=== PATIENT | female | born 1990 | race Caucasian/White ===

== ENCOUNTER → 2016-09-03 | Outpatient (CLI) | payer BC ==
[~2016-09-03] MED LIST: BCPILLS PO
== END | disposition home or self-care (01) ==
LOC: C.PAPS 09:26
PROVIDERS: ATTEND Obstetrics & Gynecology
DX: Z01.419 Encounter for gynecological examination (general) (routine) without abnormal findings (principal)

== ENCOUNTER → 2016-09-03 | Outpatient (CLI) | payer BC ==
[2016-09-08 09:57] LABS: CHLAMYDIA TRACH RNA*** NOT DETECTED (NOT DETECTED); GC (NEIS GONORRHOEAE)RNA** NOT DETECTED (NOT DETECTED)
== END | disposition home or self-care (01) ==
LOC: C.LABSPEC 15:15
PROVIDERS: ATTEND Obstetrics & Gynecology
DX: Z01.419 Encounter for gynecological examination (general) (routine) without abnormal findings (principal)

== ENCOUNTER 2018-07-27 19:24 | Inpatient (IN) ==
[2018-07-27] MEDS ORDERED: OXYTOCIN 30 UNITS/500 ML BAG IV PRN (19:37)
[2018-07-27] MEDS ORDERED: LACTATED RINGER'S 1,000 ML IV PRN (19:37)
--- NOTE | 2018-07-27 19:43 | History & Physical Report ---
Date of Service July 27, 2018 38+5 GA G1 presents for assessment of blood pressure that was initially checked in the office by my partner. On checking blood pressure today the blood pressure is over the limits for gestational hypertension as a result that makes 2 readings in the last 4 hours that she meets the diagnosis for gestational hypertension. Cervix is apparently unfavorable I recommended cervical Franklin patient seems to understand this and the need for induction. The patient is currently not symptomatic she has no headache no right upper quadrant pain no visual problems she does have some increased swelling she is group B strep positive. has been otherwise uncomplicated and this is her first baby Assessment & Plan (1) Gestational hypertension: Recommend induction. We will begin by cervical ripening with cervical Franklin patient will also need penicillin prophylaxis for GBS this will be started when more active labor is in effect History of Present Illness Primary Care Provider: Steve Fatima MD Allergies Allergy/AdvReac Type Severity Reaction Status Date / Time SEASONAL Allergy Unknown ITCHY/WATERY Uncoded 06/27/15 09:05 EYES Home Medications Home Medications Medication Instructions Recorded Confirmed Type Control Pills 1 tab PO DAILY #0 tab 01/03/16 History Physical Exam Vital Signs (Past 24 Hours): Last Vital Signs Pulse 121 H 07/27/18 19:34 BP 167/91 H 07/27/18 19:34 Constitutional: WD/WN, vitals as above Respiratory: normal respiratory effort, lungs clear to auscultation Cardiovascular: RRR, no murmur, no edema
[2018-07-27 20:12] LABS: Hemoglobin 9.4 g/dL (12.0-16.0); Mean Corpuscular Volume 73.5 fL (80-100); Mean Platelet Volume 10.5 fL (7.4-10.4); Platelet Count 178 K/uL (130-400); RDW Standard Deviation 43.3 fL (36.4-46.3); Red Blood Count 4.08 M/uL (4.2-5.4); White Blood Count 14.79 K/uL (4.8-10.8)
--- NOTE | 2018-07-27 20:43 | Obstetrical Progress Note ---
Date of Service Reviewed -induced hypertension labs drawn earlier these were normal cervix is examined is 50% and closed cervical Franklin placed under sterile conditions balloon inflated to 30cc July 27, 2018 Physical Exam Vital Signs (Past 24 Hours): Last Vital Signs Temp 36.8 C 07/27/18 19:34 Pulse 113 H 07/27/18 20:12 Resp 20 07/27/18 20:12 BP 149/80 H 07/27/18 20:12
[2018-07-27 20:54] LABS: Mean Corpuscular Hgb Conc 31.3 g/dL (32-36)
[2018-07-27] MEDS ORDERED: DiphenhydrAMINE HCL 50 MG/ML VIAL IV STA (22:12)
[2018-07-27] MEDS ORDERED: DiphenhydrAMINE HCL 50 MG/ML VIAL ONE (22:13)
[2018-07-27] MEDS ORDERED: PENICILLIN G POTASSIUM 6 MU in DEXTROSE 5% 250 ML IV STA (22:18)
[2018-07-28] MEDS ORDERED: LACTATED RINGER'S 1,000 ML IV PRN ×2 (00:18→17:33)
[2018-07-28] MEDS: OXYTOCIN 30 UNITS/500 ML BAG IV PRN (04:53)
--- NOTE | 2018-07-28 06:31 | Obstetrical Progress Note ---
Date of Service July 28, 2018 Subjective Patient on Pitocin cervical Franklin has fallen out she is now 3-4 cm 50% -3 position has been confirmed is vertex on ultrasound. Penicillin is running heart rate category 1 Physical Exam Vital Signs (Past 24 Hours): Last Vital Signs Temp 36.4 C L 07/28/18 04:23 Pulse 107 H 07/28/18 06:29 Resp 20 07/27/18 20:12 BP 148/102 H 07/28/18 06:29 Pulse Ox 98 07/27/18 22:43
--- NOTE | 2018-07-28 07:37 | Obstetrical Progress Note ---
Date of Service July 28, 2018 Assessment & Plan (1) Gestational hypertension: bps ok, no complaints. c/w pit pt aware i am taking over care. (2) 38 weeks gestation of : (3) Group beta Strep positive: on pcn Subjective comfortable, no pain with ctx. Physical Exam Vital Signs (Past 24 Hours): Last Vital Signs Temp 98.2 F 07/28/18 07:15 Pulse 97 H 07/28/18 07:15 Resp 22 07/28/18 07:15 BP 149/90 H 07/28/18 07:15 Pulse Ox 98 07/27/18 22:43 Constitutional: WD/WN, vitals as above Genitourinary: OB Exam Monitor Tracing: + external FHT monitor used (130 mod variability, reactive), + external uterine monitor used (q2-3), + category I and + normal FHT variability
[2018-07-28] MEDS: PENICILLIN G POTASSIUM 3 MU in DEXTROSE 5% 100 ML IV PRN ×4 (08:52→21:44)
[2018-07-28] MEDS ORDERED: COUGH DROP (SUGAR FREE) LOZ 24 LOZ/1 BOX BUCCAL ONE (10:40)
[2018-07-28] MEDS: LACTATED RINGER'S 1,000 ML IV SCH ×3 (11:18→23:19)
--- NOTE | 2018-07-28 12:50 | Obstetrical Progress Note ---
Date of Service July 28, 2018 Assessment & Plan (1) 38 weeks gestation of : (2) Gestational hypertension: bps ok. c/w pit. will see how arom augments pattern. will need to have exam before getting up to BR. (3) Group beta Strep positive: on pcn Subjective feeling some ctx but not severe. Physical Exam Vital Signs (Past 24 Hours): Last Vital Signs Temp 98.1 F 07/28/18 12:02 Pulse 88 07/28/18 12:02 Resp 18 07/28/18 12:02 BP 130/80 07/28/18 12:02 Pulse Ox 98 07/27/18 22:43 Constitutional: WD/WN, vitals as above Genitourinary: Manual OB Exam: + cervical dilation 3 cm, + cervical effacement 80%, + station -2 and + amniotic fluid (arom, needle, with fundal pressure, large amount of fluid) clear OB Exam Monitor Tracing: + external FHT monitor used (140 mod variability), + external uterine monitor used (q2. pit at 15), + category I and + normal FHT variability
[2018-07-28] MEDS ORDERED: CHLORASEPTIC 1.4% SOLN 180 ML BTL MT PRN (15:13)
--- NOTE | 2018-07-28 15:16 | Obstetrical Progress Note ---
Date of Service July 28, 2018 Assessment & Plan (1) 38 weeks gestation of : (2) Group beta Strep positive: pcn (3) Gestational hypertension: c/w pit, increase to keep ctx strong and regular. reeval cx in 2hr Subjective feeling pain with ctx but not terrible Physical Exam Vital Signs (Past 24 Hours): Last Vital Signs Temp 98.1 F 07/28/18 14:30 Pulse 94 H 07/28/18 14:49 Resp 20 07/28/18 14:30 BP 132/81 07/28/18 14:49 Pulse Ox 98 07/27/18 22:43 Constitutional: WD/WN, vitals as above Genitourinary: Manual OB Exam: + cervical dilation 4 cm, + cervical effacement 90% and + station -2 OB Exam Monitor Tracing: + external FHT monitor used (135 mod variability reactive), + external uterine monitor used (q3), + category I and + normal FHT variability pit at 21
[2018-07-28] MEDS ORDERED: CETIRIZINE HCL 10 MG TABLET PO STA (15:40)
[2018-07-28] MEDS ORDERED: ePHEDrine sulfate 50 MG/ML AMP ONE (17:05)
[2018-07-28] MEDS ORDERED: fentaNYL citrate 100 MCG/2 ML VIAL ONE (17:05)
[2018-07-28] MEDS ORDERED: BUPIVACAINE 0.25% 30 ML VIAL ONE (17:05)
[2018-07-28] MEDS ORDERED: fentaNYL 2MCG/ML ROPIV 1.25MG/ML 100 ML BAG EPI ONE (17:06)
--- NOTE | 2018-07-28 17:14 | Anesthesiology Consultation ---
Date of Service July 28, 2018 Assessment & Plan (1) Encounter for pre-operative examination: Chart Review Chart Review: Acceptable Risk for Labor Epidural Consults Requested none ASA ASA2 Proposed Anesthesia Anesthesia Type: Labor Epidural Risk / Benefits Reviewed With: PT / POA / Parent / Guardian, Accepts Plan and Informed Consent Obtained History Height/Weight Height: 5 ft 3 in Weight: 95.254 kg Allergies Allergy/AdvReac Type Severity Reaction Status Date / Time milk Allergy Anaphylaxis Verified 07/27/18 20:46 SEASONAL Allergy Unknown ITCHY/WATERY Uncoded 06/27/15 09:05 EYES Medications Home Medications Medication Instructions Recorded Confirmed Last Taken Iron (ferrous sulfate) 1 tabs PO DAILY 07/27/18 07/27/18 07/27/18 Vitamin 1 tab PO DAILY 07/27/18 07/27/18 07/27/18 albuterol sulfate [ProAir HFA] 2 inhaler INHALATION Q4 PRN 07/27/18 07/27/18 2 Months Ago ~05/29/18 cetirizine [Zyrtec] 1 tab PO DAILY PRN 07/27/18 07/27/18 2 Weeks Ago ~07/13/18 Active Medications Generic Name Dose Route Start Last Admin Trade Name Freq PRN Reason Stop Dose Admin Lactated Ringer's 1,000 mls @ 125 mls/hr 07/27/18 19:45 07/28/18 17:01 Lr IV 07/29/18 19:44 999 mls/hr .Q8H SUSANA Infusion Penicillin G Potassium 3 mu/ 106 mls @ 100 mls/hr 07/27/18 22:18 07/28/18 14:37 Dextrose IV 08/06/18 22:17 Infused Q4H PRN Infusion Give until delivery Oxytocin 30 units in 500 mls @ 23 mls/hr 07/28/18 04:18 07/28/18 15:15 Pitocin IV 08/27/18 04:17 1.38 units/hr .[id number] PRN 23 mls/hr Labor Induction/Augmentation Titration Protocol 1.38 UNITS/HR Lactated Ringer's 1,000 mls @ 999 mls/hr 07/28/18 00:18 07/28/18 11:18 Lr IV 07/30/18 00:17 Infused .Q1H1M PRN Infusion Tachysystole Phenol 2 sprays 07/28/18 15:13 07/28/18 16:27 Chloraseptic 1.4% [place] 08/27/18 15:12 2 sprays Q4 PRN Administration Allergic Symptoms Past Surgical History Surgical History S/P wisdom tooth extraction Past Anesthesia History No Hx of Anesthesia Complications and No Family Hx of Anesthesia Complications History of PONV No Motion Sickness Screening History of Motion Sickness: No Social History Smoking Status: Never smoker Do You Dip or Chew Tobacco: No Hx Alcohol Use: No Hx Substance Use: No substance use type: does not use Exercise / Class Metabolic Activity II 4-5 Yardwork/Stairs/Walk up hill Physical Exam Vital Signs Last Vital Signs Temp 98.1 F 07/28/18 16:56 Pulse 94 H 07/28/18 14:49 Resp 20 07/28/18 16:56 BP 132/81 07/28/18 14:49 Pulse Ox 98 07/27/18 22:43 ENMT Mouth: no dentition abnormality Thyromental Distance: > or= 3.5 Finger Breadths Mallampati Class: II Neck normal visual inspection Respiratory normal respiratory effort Auscultation: lungs clear to auscultation bilaterally Cardiovascular Rate/Rhythm: regular rate and regular rhythm Testing Laboratory Results 07/27/18 19:52
[2018-07-28] MEDS ORDERED: NALOXONE HCL 0.4 MG/1 ML VIAL/CARP IV PRN (17:33)
[2018-07-28] MEDS ORDERED: NALOXONE HCL 1 MG in SODIUM CHLORIDE 0.9% 1000ML 1,000 ML IV PRN (17:33)
[2018-07-28] MEDS ORDERED: ePHEDrine sulfate 50 MG/ML AMP IV PRN (17:33)
[2018-07-28] MEDS ORDERED: fentaNYL 2MCG/ML ROPIV 1.25MG/ML 100 ML BAG EPI PRN (17:33)
[2018-07-28] MEDS ORDERED: ONDANSETRON INJ 2 MG/ML 2 ML VIAL IV PRN (17:33)
[2018-07-28] MEDS ORDERED: DiphenhydrAMINE HCL 50 MG/ML VIAL IV PRN (17:33)
[2018-07-28] MEDS ORDERED: NALBUPHINE HCL INJ 10 MG/ML AMP IV PRN (17:33)
--- NOTE | 2018-07-28 17:54 | Obstetrical Progress Note ---
Date of Service July 28, 2018 Assessment & Plan (1) 38 weeks gestation of : (2) Group beta Strep positive: on pcn (3) Gestational hypertension: c/w pit. fhts categ 1. slow but steady cx change. rec resting, less visitors Subjective now comfortable with epidural, says she is tired. Physical Exam Vital Signs (Past 24 Hours): Last Vital Signs Temp 98.1 F 07/28/18 16:56 Pulse 105 H 07/28/18 17:48 Resp 20 07/28/18 16:56 BP 121/73 07/28/18 17:47 Pulse Ox 100 07/28/18 17:48 Constitutional: WD/WN, vitals as above Genitourinary: Manual OB Exam: + cervical dilation 5 cm, + cervical effacement 90% and + station -2 OB Exam Monitor Tracing: + external FHT monitor used (140 mod variability reactive), + external uterine monitor used (q2), + category I and + normal FHT variability pit @ 23
--- NOTE | 2018-07-28 20:35 | Obstetrical Progress Note ---
Date of Service July 28, 2018 Assessment & Plan (1) 38 weeks gestation of : (2) Group beta Strep positive: (3) Gestational hypertension: good cx change. fhts categ 1. c/w pit. Subjective having some pressure with contractions. Physical Exam Vital Signs (Past 24 Hours): Last Vital Signs Temp 98.4 F 07/28/18 18:59 Pulse 109 H 07/28/18 20:28 Resp 16 07/28/18 18:59 BP 141/78 H 07/28/18 20:18 Pulse Ox 100 07/28/18 20:28 Constitutional: WD/WN, vitals as above Genitourinary: Manual OB Exam: + cervical dilation 9 cm, + cervical effacement 100% and + station 0 OB Exam Monitor Tracing: + external FHT monitor used (150 mod variability reactive), + external uterine monitor used (q2), + category I and + normal FHT variability
[2018-07-29] MEDS: PENICILLIN G POTASSIUM 3 MU in DEXTROSE 5% 100 ML IV PRN (01:40)
[2018-07-29] MEDS: OXYTOCIN 30 UNITS/500 ML BAG IV PRN (02:42)
--- NOTE | 2018-07-29 03:26 | Delivery Summary ---
DATE OF OPERATION: 07/29/2018 DELIVERY SUMMARY The patient dilated to complete and pushed to deliver a viable female infant, Apgars 8 and 9 via over intact perineum. Mouth and nose bulb suctioned at the perineum. The shoulders and body delivered with ease. The infant vigorous at . Cord clamped at 30 seconds of life and infant to maternal abdomen where the cord was doubly clamped and then cut. Placenta delivered spontaneously and intact 3-vessel cord. Hemostasis achieved with dilute Pitocin and uterine massage as well as drainage of the bladder under sterile conditions for 150 mL. Cervix intact. Two bilateral hymenal tears extending into the bilateral labia noted. They were injected with 1% lidocaine for anesthesia. They were reapproximated using 3-0 Vicryl. Remainder of the sulci were intact. EBL 300 mL. Mother and baby stable in recovery. I attest to the content of the Intraoperative Record and any orders documented therein. Any exception s are noted below.
--- NOTE | 2018-07-29 03:30 | Anesthesia Procedure Note ---
Date of Service July 29, 2018 Anesthesia Post Epidural Note Vital Signs Vital Signs: Temp Pulse Resp BP Pulse Ox 97.7 F 129 H 20 125/77 98 07/29/18 01:00 07/29/18 03:20 07/29/18 01:45 07/29/18 03:20 07/29/18 02:28 Pain Intensity Bilateral Abdomen: Pain Intensity: 5 Notes Mental Status: alert / awake / arousable and participated in evaluation Nausea / Vomiting: adequately controlled Pain: adequately controlled Airway Patency, RR, SpO2: stable & adequate BP & HR: stable & adequate Hydration State: stable & adequate Neuraxial Anesthesia: was administered and sensory block is resolving Anesthetic Complications: no major complications apparent and Pt Satisfied with anesthetic care Epidural: Removed without complications and With tip intact
[2018-07-29] MEDS ORDERED: ACETAMINOPHEN 325 MG TAB PO PRN (04:08)
[2018-07-29] MEDS ORDERED: SUPERCREAM 0.870% 15 GM JAR EXT PRN (04:08)
[2018-07-29] MEDS ORDERED: HYDROCORTISONE ACETATE 25 MG SUPP PR PRN (04:08)
[2018-07-29] MEDS ORDERED: IBUPROFEN 600 MG TAB PO PRN (04:08)
[2018-07-29] MEDS ORDERED: OXYTOCIN 20 UNITS in LACTATED RINGER'S 1,000 ML IV SCH (04:08)
[2018-07-29] MEDS ORDERED: OXYTOCIN 30 UNITS/500 ML BAG IV PRN (04:08)
[2018-07-29] MEDS ORDERED: OXYCODONE/ACETAMINOPHEN 5mg/325mg TAB PO PRN (04:08)
[2018-07-29] MEDS ORDERED: DIPHTHERIA/TETANUS/PERTUSSIS 0.5 ML SYR/VIAL IM ONE (04:08)
[2018-07-29] MEDS ORDERED: BENZOCAINE 20% AER SPR 82.5 GM CAN EXT PRN (04:08)
[2018-07-29] MEDS: DOCUSATE SODIUM 100 MG CAP PO SCH ×2 (08:19→22:02)
[2018-07-29] MEDS ORDERED: CETIRIZINE HCL 10 MG TABLET PO PRN (21:58)
[2018-07-29] MEDS ORDERED: ALBUTEROL HFA 8 GM INHALER INH PRN (21:58)
--- NOTE | 2018-07-30 07:49 | Obstetrical Progress Note ---
Date of Service July 30, 2018 Assessment & Plan (1) state: Routine care, may be interested in discharge. Present on Admission?: No Subjective Ambulation: ambulating normally Voiding: no voiding problems Passing Gas:: Yes Diet Tolerance:: regular diet Lochia:: Small Feeding Type:: breast feeding Physical Exam Vital Signs (Past 24 Hours) Last Vital Signs Temp 36.7 C 07/29/18 23:20 Pulse 103 H 07/29/18 23:20 Resp 20 07/29/18 23:20 BP 146/83 H 07/29/18 23:20 Pulse Ox 98 07/29/18 23:20 Constitutional WD/WN, vitals as above Eyes PERRL, conjunctivae normal, anicteric sclerae Neck normal visual inspection Respiratory normal respiratory effort and able to speak in complete sentences; no respiratory distress and no labored breathing Cardiovascular Rate/Rhythm: regular rate and regular rhythm Extremities: no edema Chest (Breasts) Chest: normal inspection of chest Gastrointestinal (Abdomen) Inspection/Auscultation: abdomen normal to inspection Soft, postgravid Psychiatric A+Ox3, euthymic affect Genitourinary OB Exam Abdomen: + fundal height Fundus: + firm and + relation to umbilicus (fundus just below umbilicus); not tender
[2018-07-30] MEDS: DOCUSATE SODIUM 100 MG CAP PO SCH (08:40)
== END 2018-07-30 19:40 | disposition home or self-care (01) | DRG 807 ==
LOC: OPB 19:24 → 4S1 19:25 → 4S2 07-29 05:15

== ENCOUNTER 2020-05-29 23:20 | Observation (INO) ==
--- NOTE | 2020-05-30 00:30 | History & Physical Report ---
Date of Service May 30, 2020 Assessment & Plan (1) Vaginal bleeding during : Patient with scant old blood in vault, no active bleeding, no cervical dilation and reassuring status. Rh positive. Placenta was not felt to be low-lying any longer as of ultrasound 2 weeks ago. No obvious precipitating event (sex 10 days ago, back sprain 7 days ago, light toddler kick to belly this evening that did not leave visible bruise; none of these seem highly likely to cause a placental disruption). Doubt significant abruption but will observe for 4 hours to ensure no progression of bleeding. Vitals stable. No known coagulopathy. Unless worsening of symptoms or evidence of status change, will allow patient to take PO and will avoid placing IV or drawing bloodwork. History of Present Illness Chief Complaint: 30yo @ 32w1d presents to L&D due to onset of painless brown-pink spotting on pantiliner at home this evening. She reports that there was no obvious precipitating activity. Specifically she had a low-lying placenta found at 20wk scan and was advised to be on pelvic rest until it was rechecked at 32 weeks, however she was found to have it moved out of the low- lying range at a 30 week ultrasound done for GDM. She notes tonight that her most recent episode of intercourse was the weekend prior to last. However her also mentions that they try to have intercourse every weekend since she works days and he works nights so they don't get much opportunity to be together, which makes me question whether they were really observing pelvic rest between 20 and 30 weeks. In any case there does not sound like there was intercourse in the last 24-48 hours. She also notes she fell and hurt her back at work on 05/23 (a week ago) and was seen in the ER for that, and diagnosed with musculoskeletal strain, so she's been mostly resting at home and not doing any strenuous activity specifically for that reason. She denies using any NSAIDS for pain relief of the back injury. She did note that her toddler kicked her in the belly lightly this evening when she was wiggling excitedly at bedtime, but did not think it was enough to cause trauma. She has good FM, no LOF and no painful contractions. The bleeding was enough that she wore a pantiliner at home that she changed once before coming in, though the one she wore to the hospital was clean on arrival so she said she was worried she didn't need to come in or had overrreacted. Primary Care Provider: Steve Fatima MD Allergies Allergy/AdvReac Type Severity Reaction Status Date / Time milk Allergy Anaphylaxis Verified 05/29/20 11:28 SEASONAL Allergy Unknown ITCHY/WATERY Uncoded 05/01/20 10:32 EYES Home Medications Medication Instructions Recorded Confirmed Type cetirizine 10 mg tablet mg PO PRN tab 12/13/19 05/29/20 History prenat.vits,grzegorz,[id number] 1 tab PO DAILY 12/13/19 05/29/20 History albuterol sulfate 90 mcg/actuation 2 puff INHALATION Q4H PRN #18 g 03/29/20 05/29/20 Rx aerosol inhaler acetone (urine) test #50 ea 05/09/20 05/29/20 Rx blood sugar diagnostic #150 ea 05/09/20 05/29/20 Rx blood-glucose meter #1 ea 05/09/20 05/29/20 Rx lancets 33 gauge #150 ea 05/09/20 05/29/20 Rx aspirin PO 05/15/20 05/29/20 History ferrous sulfate PO 05/15/20 05/29/20 History lidocaine 1 patch TOPICAL DAILY PRN #15 ea 05/23/20 05/29/20 Rx Patient History Medical History (Updated 05/30/20 @ 00:26 by Malini Castro MD) Asthma Condyloma acuminatum Family history of malignant neoplasm of breast in first degree relative Gestational hypertension Heart murmur Seasonal allergies Varicella vaccination Surgical History S/P wisdom tooth extraction Family History (Updated 12/13/19 @ 10:20 by Joselin Borjas) Mother Breast cancer Grandfather (Paternal) Lung cancer Grandfather (Maternal) Aortic valve disorder Denies family history of Ovarian cancer Colorectal cancer Social History (Updated 12/13/19 @ 10:06 by Joselin Borjas) Smoking Status: Never smoker Second Hand Exposure: No; Do You Dip or Chew Tobacco: No; Tobacco Cessation Education Requested by Patient: No Hx Alcohol Use: No Hx Substance Use: No Preferred Language: Malagasy Communication Ability: Effective 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 Beliefs That Will Affect Care: None marital status: marital status details: Rahul Reyes (29) [phone] Current Living Situation: Spouse and Family Current Living Situation Comment: lives with spouse, daughter, no pets current occupational status: employed current occupation: general internal medicine doctor Home D Feels Safe at Home: Yes Safety Concerns: Feels Safe At This Time Assistive Devices: None Review of Systems All systems reviewed & are unremarkable except as noted in HPI & below Physical Exam Constitutional: WD/WN, vitals as above Eyes: PERRL, conjunctivae normal, anicteric sclerae ENMT: external ear and nose normal, oropharynx normal Neck: supple Respiratory: normal respiratory effort and able to speak in complete sentences; no respiratory distress Cardiovascular: Rate/Rhythm: regular rate and regular rhythm Gastrointestinal (Abdomen): Gravid / AGA, nontender Musculoskeletal: no cyanosis or clubbing, extremities motor strength 5/5 Skin: no rashes, warm and dry Psychiatric: A+Ox3, euthymic affect Genitourinary: OB Exam Monitor Tracing: + external FHT monitor used, + external uterine monitor used (toco quiet.) and + category I Vaginal exam: external genitalia normal, hemorrhoid present but no bleeding visible. SSE: Dark brown material, small amount, present in posterior fornix of vagina. No active bleeding from cervix which is visually c/t/h. Speculum removed and gentle digital exam confirms c/t/h. Results & Data ([facility]) Vital Signs (Past 12 Hours) Vital Signs Temp Pulse Resp BP 05/29/20 23:49 88 126/78 05/29/20 23:38 98.6 F 88 18 126/78 Code Status & VTE Plan VTE Prophylaxis Plan VTE Prophylaxis will be ordered: Yes Coding Level of Care Code 99751 OBS Care - Level 2 Diagnoses Vaginal bleeding during O46.90
--- NOTE | 2020-05-30 06:03 | Obstetrical Progress Note ---
Date of Service May 30, 2020 Assessment & Plan (1) Vaginal bleeding during : Discussed episode of vaginal bleeding of uncertain etiology, resolved with rest, and without evidence of PTL. Doubt significant trauma and reassuring status shows there is sufficient placental function. Advised strict pelvic rest for the remainder of the , since placenta was previously shown to be low-lying. Noted that having had a bleed puts patient at risk for further bleeds and abruption going forward, and that any additional vaginal bleeding needs to be reported immediately in addition to being alert for onset of painful contractions or decreased FM. Her next office appointment is 06/12/20. Admission and Anticipated Discharge Date Admission Date: May 30, 2020 Subjective Patient continues to have good FM, no Ctx, no LOF, and has had no further VB since admission. Sees a tinge of brownish color on TP when she wipes after voids, none on geovanny-pad or at any other time. Physical Exam Physical Exam: Vaginal exam deferred at this time given cessation of bleeding. FHT Cat 1 [place] remains quiet. Results & Data ([facility]) Vital Signs (Past 12 Hours) Vital Signs Temp Pulse Resp BP 05/29/20 23:49 98.6 F 88 126/78 05/29/20 23:38 98.6 F 88 18 126/78 PG Care Time/CCT Total # of Minutes Spent Total Time Spent with Patient: Total time spent is greater than 50% in coordination of care (as documented) at patient's floor/unit and/or counseling p atient: Coding Level of Care Code 45102 OBS Care - Discharge Diagnoses Vaginal bleeding during O46.90
--- NOTE | 2020-05-30 06:06 | Discharge Summary ---
Date of Service May 30, 2020 Hospital Course (1) Vaginal bleeding during : Discussed episode of vaginal bleeding of uncertain etiology, resolved with rest, and without evidence of PTL. Doubt significant trauma and reassuring status shows there is sufficient placental function. Advised strict pelvic rest for the remainder of the , since placenta was previously shown to be low-lying. Noted that having had a bleed puts patient at risk for further bleeds and abruption going forward, and that any additional vaginal bleeding needs to be reported immediately in addition to being alert for onset of painful contractions or decreased FM. Her next office appointment is 06/12/20. Coding Level of Care Code None Diagnoses Vaginal bleeding during O46.90
== END 2020-05-30 05:50 | disposition home or self-care (01) ==
LOC: OPB 23:20 → 4S1 23:20

== ENCOUNTER 2020-07-23 07:28 | Inpatient (IN) ==
[2020-07-23] MEDS ORDERED: OXYTOCIN 30 UNITS/500 ML BAG IV PRN ×3 (07:37→19:35)
[2020-07-23 07:52] LABS: Hematocrit (blood only) 31.1 % (37-47); Hemoglobin 9.7 g/dL (12.0-16.0); Mean Corpuscular Hemoglobin 20.9 pg (25-34); Mean Corpuscular Hgb Conc 31.2 g/dL (32-36); Platelet Count 161 K/uL (130-400); RDW Standard Deviation 43.8 fL (36.4-46.3); Red Blood Count 4.64 M/uL (4.2-5.4); White Blood Count 12.49 K/uL (4.8-10.8)
[2020-07-23] MEDS: LACTATED RINGER'S 1,000 ML IV PRN ×3 (08:03→15:29)
--- NOTE | 2020-07-23 10:33 | History & Physical Report ---
Date of Service July 23, 2020 Assessment & Plan Admission and Anticipated Discharge Date Admission Date: July 23, 2020 IUP) at 40 weeks with history of GDM diet controlled status and AC at 93 %TILE at 38 weeks. will begin pitocin induction of labor epidural analgesia when patient requests BS this am was 84 anticipate vaginal delivery History of Present Illness Primary Care Provider: Steve Fatima MD Patient is a EDC 07/23/20 who presents at [facility] for IOL because of concern for macrosomia. The was complicated by GDM diet controlled. AC at 34 weeks was 67%tile . AC done at 38 weeks was 93%t ile. Her first baby weighed 8 lbs 7 ozs at 38 weeks. GBS negative. Blood type A positive. Allergies Allergy/AdvReac Type Severity Reaction Status Date / Time milk Allergy Anaphylaxis Verified 07/22/20 14:43 SEASONAL Allergy Unknown ITCHY/WATERY Uncoded 07/10/20 09:41 EYES Home Medications Medication Instructions Recorded Confirmed Type acetone (urine) test #50 05/09/20 07/22/20 Rx blood sugar diagnostic #150 05/09/20 07/22/20 Rx blood-glucose meter #1 05/09/20 07/22/20 Rx lancets 33 gauge #150 05/09/20 07/22/20 Rx vit no.[id number] 1 tab PO DAILY 05/30/20 07/23/20 History [ Vitamin] Patient History Medical History (Updated 07/23/20 @ 10:30 by Promise Macias MD, FACOG) Asthma Condyloma acuminatum Family history of malignant neoplasm of breast in first degree relative Gestational hypertension Heart murmur Seasonal allergies Varicella vaccination Surgical History S/P wisdom tooth extraction Family History Mother Breast cancer Grandfather (Paternal) Lung cancer Grandfather (Maternal) Aortic valve disorder Denies family history of Ovarian cancer Colorectal cancer Social History Smoking Status: Never smoker Second Hand Exposure: No; Do You Dip or Chew Tobacco: No; Tobacco Cessation Education Requested by Patient: No Hx Alcohol Use: No Hx Substance Use: No Preferred Language: Malagasy Communication Ability: Effective Scroll Saw Operator Required: No Beliefs That Will Affect Care: None marital status: marital status details: Rahul Reyes (29) [phone] Current Living Situation: Family Current Living Situation Comment: Pt lives with spouse and daughter current occupational status: employed current occupation: repairer general [employer] Other Information That Helps Us Care for You: No Feels Safe at Home: Yes Safety Concerns: Feels Safe At This Time Assistive Devices: None Review of Systems All systems reviewed & are unremarkable except as noted in HPI & below Physical Exam Constitutional: WD/WN, vitals as above Respiratory: normal respiratory effort, lungs clear to auscultation Cardiovascular: RRR, no murmur, no edema Gastrointestinal (Abdomen): normal bowel sounds, soft, nontender, no hepatosplenomegaly Psychiatric: A+Ox3, euthymic affect Genitourinary: OB Exam Abdomen: + vertex and + estimated weight (8-9 pounds) Manual OB Exam: + cervical dilation 3 cm, + cervical effacement 70% and + station -2 OB Exam Monitor Tracing: + external FHT monitor used, + external uterine monitor used, + category I and + normal FHT variability Results & Data ([facility]) Vital Signs (Past 12 Hours) Vital Signs Temp Pulse Resp BP 07/23/20 10:22 75 130/80 07/23/20 08:34 89 128/89 07/23/20 08:28 98.1 F 89 16 128/89 07/23/20 07:35 91 H 141/93 H 07/23/20 07:34 78 154/91 H Coding Level of Care Code None
[2020-07-23] MEDS ORDERED: BUPIVACAINE 0.25% 30 ML VIAL ONE (14:07)
[2020-07-23] MEDS ORDERED: ePHEDrine sulfate 50 MG/ML AMP ONE (14:07)
[2020-07-23] MEDS ORDERED: fentaNYL citrate 100 MCG/2 ML VIAL ONE (14:07)
[2020-07-23] MEDS ORDERED: SODIUM CHLORIDE 0.9% INJ 10 ML VIAL ONE (14:07)
[2020-07-23] MEDS ORDERED: fentaNYL 2MCG/ML ROPIVACAINE 1.25MG/ML 100 ML BAG EPI ONE (14:08)
[2020-07-23] MEDS ORDERED: ePHEDrine sulfate 50 MG/ML AMP IV PRN (15:21)
[2020-07-23] MEDS ORDERED: fentaNYL 2MCG/ML ROPIVACAINE 1.25MG/ML 100 ML BAG EPI PRN (15:21)
[2020-07-23] MEDS ORDERED: diphenhydrAMINE 50 MG/ML VIAL IV PRN (15:21)
[2020-07-23] MEDS ORDERED: NALOXONE HCL 0.4 MG/1 ML VIAL/CARP IV PRN (15:21)
[2020-07-23] MEDS ORDERED: NALOXONE HCL 1 MG in SODIUM CHLORIDE 0.9% 1000ML 1,000 ML IV PRN (15:21)
[2020-07-23] MEDS ORDERED: ONDANSETRON INJ 2 MG/ML 2 ML VIAL IV PRN (15:21)
--- NOTE | 2020-07-23 15:21 | Anesthesiology Consultation ---
Date of Service July 23, 2020 Assessment & Plan (1) Encounter for pre-operative examination: Chart Review Chart Review: Acceptable Risk for Surgery and Patient NOT seen in Pre Admission Testing Consults Requested none History Height/Weight Height: 5 ft 3.5 in Weight: 78.018 kg Allergies Allergy/AdvReac Type Severity Reaction Status Date / Time milk Allergy Severe Anaphylaxis Verified 07/23/20 12:41 Medications Home Medications Medication Instructions Recorded Confirmed Last Taken acetone (urine) test #50 05/09/20 07/22/20 Unknown blood sugar diagnostic #150 05/09/20 07/22/20 Unknown blood-glucose meter #1 05/09/20 07/22/20 Unknown lancets 33 gauge #150 05/09/20 07/22/20 Unknown vit no.[id number] 1 tab PO DAILY 05/30/20 07/23/20 07/23/20 05:45 [ Vitamin] Active Medications Generic Name Dose Route Start Last Admin Trade Name Freq PRN Reason Stop Dose Admin Oxytocin 30 units in 500 mls @ 19 mls/hr 07/23/20 07:37 07/23/20 13:45 Pitocin IV 07/25/20 07:36 1.14 units/hr .Q24H PRN 19 mls/hr Labor Induction/Augmentation Titration Protocol 1.14 UNITS/HR Lactated Ringer's 1,000 mls @ 125 mls/hr 07/23/20 07:37 07/23/20 15:05 Lr IV 07/25/20 07:36 125 mls/hr .Q8H PRN Infusion L&D Protocol Protocol Past Medical History Medical History Asthma Condyloma acuminatum Family history of malignant neoplasm of breast in first degree relative Gestational hypertension Heart murmur Seasonal allergies Varicella vaccination Past Family History Family History Mother Breast cancer Grandfather (Paternal) Lung cancer Grandfather (Maternal) Aortic valve disorder Denies family history of Ovarian cancer Colorectal cancer Past Surgical History Surgical History S/P wisdom tooth extraction Social History Smoking Status: Never smoker Do You Dip or Chew Tobacco: No Hx Alcohol Use: No Hx Substance Use: No substance use type: does not use Physical Exam Vital Signs Last Vital Signs Temp 36.8 C 07/23/20 15:12 Pulse 109 H 07/23/20 15:17 Resp 18 07/23/20 15:12 BP 140/92 07/23/20 15:16 Pulse Ox 99 07/23/20 15:17 Testing Laboratory Results 07/23/20 07:42
[2020-07-23] MEDS ORDERED: bisacodyL 10 MG SUPP PR PRN (19:35)
[2020-07-23] MEDS ORDERED: BENZOCAINE 20% AER SPR 82.5 GM CAN EXT PRN (19:35)
[2020-07-23] MEDS ORDERED: IBUPROFEN 600 MG TAB PO PRN (19:35)
[2020-07-23] MEDS ORDERED: DIPHTHERIA/TETANUS/PERTUSSIS 0.5 ML SYR/VIAL IM ONE (19:35)
[2020-07-23] MEDS ORDERED: ACETAMINOPHEN 325 MG TAB PO PRN (19:35)
[2020-07-23] MEDS ORDERED: SUPERCREAM 0.870% 15 GM JAR EXT PRN (19:35)
[2020-07-23] MEDS ORDERED: oxyCODONE/ACETAMINOPHEN 5mg/325mg TAB PO PRN (19:35)
[2020-07-23] MEDS ORDERED: HYDROCORTISONE ACETATE 25 MG SUPP PR PRN (19:35)
--- NOTE | 2020-07-23 19:49 | Delivery Summary ---
Vaginal Delivery Summary Date of Service July 23, 2020 Patient is a 30-year-old 2 para 1-0-0-1 white female who presents at 40 weeks for induction of labor because of suspected macrosomia. Pitocin by induction protocol was begun. Membranes were ruptured for clear fluid. She received effective epidural analgesia. She progressed to full dilation and pushed effectively through 2 contractions to deliver a viable male infant. A loose nuchal cord was reduced prior to delivering the rest of the after the head was delivered. The rest of the infant delivered easily and was placed on the mother's abdomen for further attention and drying.The infant was vigorous and moving all 4 extremities. The placenta was expressed intact with a three-vessel cord after cord blood was obtained. A first-degree perineal laceration was repaired with 3-0 chromic in the usual fashion. bleeding was controlled with dilute Pitocin and fundal massage. EBL was 400 cc. Mother and infant were doing well after delivery. Vaginal Delivery Summary and 1st Degree [facility] Vaginal Delivery Charge Vaginal Delivery Codes: 54895 global code for the antepartum, delivery, and post- Delivery Type Details: and 1st Degree LAC
--- NOTE | 2020-07-23 20:19 | Anesthesia Procedure Note ---
Date of Service July 23, 2020 Anesthesia Post Epidural Note Vital Signs Vital Signs: Temp Pulse Resp BP Pulse Ox 36.5 C 81 18 126/73 99 07/23/20 19:00 07/23/20 20:16 07/23/20 20:00 07/23/20 20:16 07/23/20 19:27 Pain Intensity Abdomen: Pain Intensity: 8 Notes Mental Status: alert / awake / arousable and participated in evaluation Nausea / Vomiting: adequately controlled Pain: adequately controlled Airway Patency, RR, SpO2: stable & adequate BP & HR: stable & adequate Hydration State: stable & adequate Neuraxial Anesthesia: was administered and sensory block is resolving Anesthetic Complications: no major complications apparent and Pt Satisfied with anesthetic care Epidural: Removed without complications and With tip intact Notes: Epidural site clean, dry and intact. No signs of edema, erythema or bruising at insertion site. Pt instructed to request anesthesia if she has residual lower extremity numbness or if she develops lower extremity pain or weakness, back pain or headache.
[2020-07-23] MEDS: DOCUSATE SODIUM 100 MG CAP PO SCH (22:14)
[2020-07-24 07:39] LABS: Hematocrit (blood only) 28.9 % (37-47); Hemoglobin 9.1 g/dL (12.0-16.0); Mean Corpuscular Hgb Conc 31.5 g/dL (32-36); Mean Corpuscular Volume 66.6 fL (80-100); Platelet Count 185 K/uL (130-400); RDW Coefficient of Variation 18.1 % (11.5-14.5); RDW Standard Deviation 44.3 fL (36.4-46.3); Red Blood Count 4.34 M/uL (4.2-5.4); White Blood Count 14.59 K/uL (4.8-10.8)
[2020-07-24] MEDS: PRENATAL VITAMIN 1 TAB PO SCH ×2 (08:54→09:02)
[2020-07-24] MEDS: DOCUSATE SODIUM 100 MG CAP PO SCH ×2 (08:54→20:15)
--- NOTE | 2020-07-24 09:19 | Obstetrical Progress Note ---
Date of Service July 24, 2020 Assessment & Plan (1) state: satisfactory post progress continue current care plan Day #:: 1 Subjective Ambulation: ambulating normally Voiding: no voiding problems Passing Gas:: Yes Diet Tolerance:: regular diet Lochia:: Small Feeding Type:: breast feeding mild cramping , lochia is small Physical Exam Constitutional WD/WN, vitals as above Psychiatric A+Ox3, euthymic affect Genitourinary OB Exam Abdomen: + fundal height Fundus: + firm and + relation to umbilicus (1 below U) Results & Data ([facility]) Vital Signs (Past 12 Hours) Vital Signs Temp Pulse Pulse Resp BP BP BP 07/24/20 08:35 98.2 F 72 18 127/85 07/24/20 04:05 97.7 F 82 18 111/75 07/24/20 00:20 97.9 F 89 18 126/79 07/23/20 22:00 97.7 F 18 07/23/20 21:55 97.7 F 16 07/23/20 21:46 100 H 148/90 H 07/23/20 21:30 18 07/23/20 21:16 110 H 141/84 H Pulse Ox 07/24/20 08:35 100 07/24/20 04:05 07/24/20 00:20 07/23/20 22:00 07/23/20 21:55 07/23/20 21:46 07/23/20 21:30 07/23/20 21:16
[2020-07-24] MEDS ORDERED: IBUPROFEN 200 MG/10 ML UDC PO PRN (19:12)
[2020-07-24] MEDS ORDERED: Nursing to Pharmacy Communication SCH (19:15)
[2020-07-25 06:14] LABS: Hematocrit (blood only) 28.7 % (37-47); Hemoglobin 8.7 g/dL (12.0-16.0)
--- NOTE | 2020-07-25 06:44 | Obstetrical Progress Note ---
Date of Service <Mona CrneshawSasha Kingmaida - Last Filed: 07/25/20 07:09> July 25, 2020 Assessment & Plan <Mona Guo DO - Last Filed: 07/25/20 07:09> (1) state: - PNL: Rh pos, RI, GBS neg, COVID neg - Feels well today. Eating well, voiding well, ambulating well. - Pain well controlled with ibuprofen 600mg Q4H PRN - Routine care -- OOB, ambulation, diet progression as tolerated - H&H is 8.7 & 28.7 today. Patient asymptomatic w/o lightheadedness or dizziness. 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 Encourage patient to eat iron-rich foods. - After discharge will have 6 week follow-up with Dr. Tipton. Subjective <Mona Hatfield Sari - Last Filed: 07/25/20 07:09> Grecia Reyes is a 30 y/o female who is PPD #2 following spontaneous vaginal delivery at 40 weeks. She reports feeling well overall this morning. Minimal abdominal cramping and 3/10 pain well managed on analgesics. Voiding without dysuria. Tolerating meals overnight without difficulty, nausea, or vomiting. Patient has been able to ambulate some. She is passing gas. Has persistent lochia with some improvement this morning. Currently . Review of Systems Denies fever or chills. Denies shortness of breath or cough. Denies chest pain. Denies breast pain. Denies dysuria. Denies leg pain or leg swelling. Denies headache or changes in vision. Physical Exam <Mona CrenshawSasha Guo - Last Filed: 07/25/20 07:09> General: Alert, oriented. No acute distress. Cardiac: Regular rate and rhythm. No murmurs. Respiratory: Clear to auscultation bilaterally a/p, no wheezes/rales/rhonchi. No increased work of breathing. Symmetrical chest rise. No respiratory distress. Abdomen: Soft, nontender, nondistended. Bowel sounds present. Uterus: Uterine fundus firm, palpable 1 cm below umbilicus. Lower Extremities: No lower extremity edema or swelling. No deep calf pain. Lindsay's negative bilaterally. Results & Data ([facility]) <Mona Guo DO - Last Filed: 07/25/20 07:09> Vital Signs (Past 12 Hours) Vital Signs Temp Pulse Resp BP Pulse Ox 07/24/20 23:00 36.6 C 97 H 18 105/68 98 Laboratory Results 07/25/20 07/24/20 Range/Units 05:30 07:30 WBC 14.59 H (4.8-10.8) K/uL RBC 4.34 (4.2-5.4) M/uL Hgb 8.7 L 9.1 L (12.0-16.0) g/dL Hct 28.7 L 28.9 L (37-47) % MCV 66.6 L (80-100) fL MCH 21.0 L (25-34) pg MCHC 31.5 L (32-36) g/dL RDW Std Deviation 44.3 (36.4-46.3) fL RDW Coeff of Josephine 18.1 H (11.5-14.5) % Plt Count 185 (130-400) K/uL <Cammy Che MD, FACOG - Last Filed: 07/25/20 07:20> Co-Signing Physician Notes Resident Physician Supervision Note: I was present with Dr. uGo during the history and exam. I discussed the case with the resident and agree with the findings and plan as documented in the note. Any exceptions or clarifications are listed here: [None] Documented By: Cammy Che MD, FACOG Resident Activity Tracking <Mona Guo DO - Last Filed: 07/25/20 07:09> Resident Involvement: Resident Care Provided Care Provided: OB Delivery
[2020-07-25] MEDS: PRENATAL VITAMIN 1 TAB PO SCH (08:50)
[2020-07-25] MEDS: DOCUSATE SODIUM 100 MG CAP PO SCH (08:50)
== END 2020-07-25 10:44 | disposition home or self-care (01) | DRG 807 ==
LOC: 4S1 07:28 → 4S2 22:17